=== PATIENT | female | born 1955 | race Caucasian/White ===

== ENCOUNTER → 2024-10-07 | Outpatient (CLI) | payer MEDICARE, OTHER, SELFPAY ==
--- NOTE | 2024-10-07 11:45 | XR_ITS ---
Examination: Screening digital mammography, bilateral Computer aided detection 3-D breast Tomosynthesis, bilateral Date and time of exam: October 07, 2024 1153 hours Compared to mammograms dating to March 17, 2022 Indication: Screening Technique: Nonmagnified MLO, CC views of the breasts to been obtained, reconstructed from 3-D Tomosynthesis images. R2 computer aided detection program utilized for evaluation of suspicious masses and/or abnormal calcifications. 3-D Tomosynthesis images obtained. Findings: Scattered areas of fibroglandular density Intact implants 17 mm focal asymmetry inner upper right breast posterior depth Impression: BI-RADS Category 0: Incomplete: Need additional imaging evaluation 17 mm focal asymmetry inner upper right breast posterior depth, recommend follow-up spot tomographic views of this asymmetry as well as right breast sonography to complete the workup
== END | disposition home or self-care (01) ==
LOC: CDIM 11:45
PROVIDERS: PCP Nurse Practitioner Family; Referring Provider Specialist; Visit Provider Specialist
DX: Z12.31 Encounter for screening mammogram for malignant neoplasm of breast (principal); R92.8 Other abnormal and inconclusive findings on diagnostic imaging of breast; N64.89 Other specified disorders of breast
CPT/HCPCS: 77063; 77067

== ENCOUNTER → 2025-01-22 | Outpatient (CLI) | payer MEDICARE, OTHER, SELFPAY ==
--- NOTE | 2025-01-22 13:30 | XR_ITS ---
Examination: Breast ultrasound, unilateral, right complete Date and time of exam: January 22, 2025 1347 hrs. Indications: Mammogram January 07, 2024, 17 mm focal asymmetry inner upper right breast Technique: Real-time godoy scale ultrasonographic imaging performed right breast including all 4 quadrants as well as nipple retroareolar and axillary region. Findings: 12:00 oval mass circumscribed 3 x 3 mm 12:00 oval mass versus glandular tissue 2.5 x 2.5 cm Impression: BI-RADS Category 3: Probably benign findings. One additional 6 month right breast sonogram follow-up is needed to document stability of 12:00 nodule versus glandular tissue
--- NOTE | 2025-01-22 14:00 | XR_ITS ---
Examination: Diagnostic digital mammography, unilateral, right Computer aided detection 3-D breast Tomosynthesis, unilateral Date and time of exam: 01/22/2025, 12:05 PM Comparisons March 2022 through September 2024: Indications further evaluation of abnormality seen on prior screening exam.: Technique: Nonmagnified MLO, CC views of the right breast have been obtained, reconstructed from 3-D Tomosynthesis images. R2 computer aided detection program utilized for evaluation of suspicious masses and/or abnormal calcifications. 3-D Tomosynthesis images obtained. Technologist: Findings: The breasts are heterogeneously dense, which may obscure small masses. Stable benign-appearing focal asymmetry. No evidence of abnormal masses or suspicious calcifications. Impression: BI-RADS category 2: Benign findings Recommend 1 year follow-up mammogram
== END | disposition home or self-care (01) ==
LOC: CDIM 13:34
PROVIDERS: Referring Provider Nurse Practitioner Family; Visit Provider Nurse Practitioner Family
DX: R92.321 Mammographic fibroglandular density, right breast (principal); N63.15 Unspecified lump in the right breast, overlapping quadrants
CPT/HCPCS: 76641; 77061; 77065; G0279